=== PATIENT | female | born 1985 | race Asian ===

== ENCOUNTER 2017-07-05 15:52 | Emergency (ER) | payer OTHER ==
[~2017-07-05] VITALS: Ht 162.6 cm; Wt 61.2 kg
[2017-07-05] MEDS ORDERED: Morphine Sulfate 4mg/ml Inj IVP ONE ×2 (16:15→19:00)
[2017-07-05 17:12] VITALS: BP 123/74
[2017-07-05 17:12] LABS: BASOPHILS % (AUTO) 0.9 % (0.0-2.0); EOSINOPHILS % (AUTO) 0.3 % (0.0-3.0); LYMPHOCYTES % (AUTO) 8.1 % (20.0-45.0); MEAN CORPUSCULAR HEMOGLOBIN 31.6 PG (27.0-31.0); MEAN CORPUSCULAR HGB CONC 34.3 G/DL (32.0-36.0); MEAN CORPUSCULAR VOLUME 92 FL (80-99); MEAN PLATELET VOLUME 6.3 FL (6.5-10.1); MONOCYTES % (AUTO) 7.8 % (1.0-10.0); NEUTROPHILS % (AUTO) 82.9 % (45.0-75.0); PLATELET COUNT 271 K/UL (150-450); RED BLOOD COUNT 4.56 M/UL (4.20-5.40); RED CELL DISTRIBUTION WIDTH 11.3 % (11.6-14.8); WHITE BLOOD COUNT 17.7 K/UL (4.8-10.8)
[2017-07-05 17:14] LABS: APPEARANCE,URINE CLEAR; KETONES,URINE 4+ (NEGATIVE); LEUKOCYTE ESTERASE ,URINE 3+ (NEGATIVE); NITRITE,URINE NEGATIVE (NEGATIVE); PH,URINE 7 (4.5-8.0); PROTEIN,URINE 2+ (NEGATIVE); UROBILINOGEN,URINE 1 MG/DL (0.0-1.0)
[2017-07-05 17:24] LABS: BACTERIA,URINE MODERATE /HPF; SQUAMOUS EPITHELIAL CELL,UR FEW /LPF (NONE/OCC)
[2017-07-05 17:25] LABS: AMORPHOUS SEDIMENT,UR FEW /LPF
[2017-07-05 17:35] LABS: ALANINE AMINOTRANSFERASE 11 U/L (3-33); ALBUMIN/GLOBULIN RATIO 1.5 (1.0-2.7); ANION GAP 14 (5-15); ASPARTATE AMINO TRANSFERASE 18 U/L (5-40); CALCIUM 9.5 mg/dL (8.6-10.2); CARBON DIOXIDE 27 mEQ/L (20-30); CHLORIDE 99 mEQ/L (98-107); CREATININE 0.7 mg/dL (0.5-0.9); GLOMERULAR FILTRATION RATE > 60 mL/min (>60); HEMOLYSIS 71; POTASSIUM 3.6 mEQ/L (3.4-4.9); SODIUM 140 mEQ/L (135-145); TOTAL PROTEIN 7.5 g/dL (6.6-8.7)
[2017-07-05] MEDS ORDERED: Ketorolac 30mg Inj IV ONE (19:00)
[2017-07-05 19:12] VITALS: BP 127/71
[2017-07-05] MEDS ORDERED: SOMA350 MG PO (19:39)
[2017-07-05] MEDS ORDERED: IBUPROFEN600 MG ORAL (19:39)
[2017-07-05 19:55] VITALS: BP 127/71
--- NOTE | 2017-07-06 10:40 | Diagnostic Imaging Report ---
Indication: Neck pain Technique: MRI examination of the cervical spine was performed in a 1.5 Marisa magnet. Sequences obtained include sagittal and axial T1 and T2 fast spin echo, and sagittal STIR. No IV gadolinium was given Comparison: none Findings: There is loss of cervical lordosis. Disc height is relatively well-maintained. There is mild narrowing of the C5-6 disc with a mild circumferential disc bulge present. Bone marrow signal normal. There is no cortical impression or spinal stenosis. There is no soft tissue swelling. The cord is normal in appearance. The neural foramina and central canal. Widely patent. Impression: Mild degenerative disc disease at C5-6. Loss of cervical lordosis which may be on the basis of muscle spasm.
--- NOTE | 2017-07-06 14:21 | Emergency Room Report ---
History of Present Illness General Chief Complaint: Neck Pain Source: Patient Present Illness HPI 31-year-old female presents to ER for evaluation. Patient states she's having neck pain which started yesterday morning when she woke up. Stiffness in her neck. Pain was a 10 out of 10. Patient went to a chiropractor for manipulation and states pain did not improve. Patient states after work she went to [facility]. Had an x-ray which was negative. Pain medications. Was placed in a hard collar. She states she is here today to the pain is not improved. Pain is a 10 out of 10, sharp to the left-sided neck radiating to the left shoulder. Denies fevers or chills. Denies headache. No other aggravating or leading factors. Denies any other assocaited symptoms Allergies: Coded Allergies: No Known Allergies (Unverified , 07/05/17) Patient History Past Medical History: none Past Surgical History: none Pertinent Family History: none Social History: Denies: alcohol use, drug use, smoking Last Menstrual Period: 05/24/17 Now: No Immunizations: UTD Reviewed Nursing Documentation: PMH: Agreed, PSxH: Agreed Nursing Documentation-PMH Past Medical History: No History, Except For Review of Systems All Other Systems: negative except mentioned in HPI Physical Exam Vital Signs Date Time Temp Pulse Resp B/P Pulse Ox O2 Delivery O2 Flow Rate FiO2 07/05/17 15:55 97.7 77 16 123/74 99 Room Air Sp02 EP Interpretation: reviewed, normal General Appearance: no apparent distress, alert, GCS 15, non-toxic Head: normocephalic Eyes: bilateral eye PERRL, bilateral eye normal inspection ENT: normal ENT inspection Neck: full range of motion, no bony tend, supple/symm/no masses, limited range of motion, tender lateral Respiratory: normal inspection Cardiovascular #1: normal inspection Gastrointestinal: normal inspection Rectal: deferred Genitourinary: no CVA tenderness Musculoskeletal: back normal, gait/station normal, normal range of motion, non- tender Neurologic: alert, oriented x3, responsive, insurance coder III-XII nml as tested, motor strength/tone normal, sensory intact, speech normal Psychiatric: judgement/insight normal, memory normal, mood/affect normal, no suicidal/homicidal ideation Skin: normal inspection Lymphatic: normal inspection Medical Decision Making Diagnostic Impression: Primary Impression: Neck pain ER Course Hospital Course 31-year-old F presents to ED complaining of neck pain, stiffness Differential diagnoses include: Fracture, dislocation, sprain, contusion Clinical course Patient placed on stretcher. After initial history and physical, I ordered pain medications and MRI of Cspine Labs-noted leukocytosis, hemoglobin/hematocrit stable, electrolytes okay MRI C spine - Mild degenerative disc disease at C5-6. Loss of cervical lordosis which may be on the basis of muscle spasm. On reassessment pain is improved. given MRI findings, and no headache, and no fever, my suspicion for SAH or meningitis is low recommend removing hard-collar as it may exacerbate neck stiffness. recommend antiinflammatories and muscle relaxers Diagnosis - neck pain Stable and discharged to home with prescription for Motrin, Soma. apply heat. Followup with PMD. Return to ED if symptoms recur or worsen Labs Test 07/05/17 16:40 White Blood Count 17.7 K/UL (4.8-10.8) Red Blood Count 4.56 M/UL (4.20-5.40) Hemoglobin 14.4 G/DL (12.0-16.0) Hematocrit 42.1 % (37.0-47.0) Mean Corpuscular Volume 92 FL (80-99) Mean Corpuscular Hemoglobin 31.6 PG (27.0-31.0) Mean Corpuscular Hemoglobin Concent 34.3 G/DL (32.0-36.0) Red Cell Distribution Width 11.3 % (11.6-14.8) Platelet Count 271 K/UL (150-450) Mean Platelet Volume 6.3 FL (6.5-10.1) Neutrophils (%) (Auto) 82.9 % (45.0-75.0) Lymphocytes (%) (Auto) 8.1 % (20.0-45.0) Monocytes (%) (Auto) 7.8 % (1.0-10.0) Eosinophils (%) (Auto) 0.3 % (0.0-3.0) Basophils (%) (Auto) 0.9 % (0.0-2.0) Urine Color Yellow Urine Appearance Clear Urine pH 7 (4.5-8.0) Urine Specific [place] 1.010 (1.005-1.035) Urine Protein 2+ (NEGATIVE) Urine Glucose (UA) Negative (NEGATIVE) Urine Ketones 4+ (NEGATIVE) Urine Occult Blood Negative (NEGATIVE) Urine Nitrite Negative (NEGATIVE) Urine Bilirubin Negative (NEGATIVE) Urine Urobilinogen 1 MG/DL (0.0-1.0) Urine Leukocyte Esterase 3+ (NEGATIVE) Urine RBC 2-4 /HPF (0 - 2) Urine WBC 5-10 /HPF (0 - 2) Urine Squamous Epithelial Cells Few /LPF (NONE/OCC) Urine Amorphous Sediment Few /LPF (NONE) Urine Bacteria Moderate /HPF (NONE) Urine HCG, Qualitative Negative Sodium Level 140 mEQ/L (135-145) Potassium Level 3.6 mEQ/L (3.4-4.9) Chloride Level 99 mEQ/L (98-107) Carbon Dioxide Level 27 mEQ/L (20-30) Anion Gap 14 (5-15) Blood Urea Nitrogen 9 mg/dL (7-23) Creatinine 0.7 mg/dL (0.5-0.9) Estimat Glomerular Filtration Rate > 60 mL/min (>60) Glucose Level 97 mg/dL (74-106) Calcium Level 9.5 mg/dL (8.6-10.2) Total Bilirubin 0.8 mg/dL (0.0-1.2) Aspartate Amino Transf (AST/SGOT) 18 U/L (5-40) Alanine Aminotransferase (ALT/SGPT) 11 U/L (3-33) Alkaline Phosphatase 71 U/L (35-104) Total Protein 7.5 g/dL (6.6-8.7) Albumin 4.5 g/dL (3.5-5.2) Globulin 3.0 g/dL Albumin/Globulin Ratio 1.5 (1.0-2.7) Human Chorionic Gonadotropin, Qual CT/MRI/US Diagnostic Results CT/MRI/US Diagnostic Results : Imaging Test Ordered: MRI Cspine Impression Mild degenerative disc disease at C5-6. Loss of cervical lordosis which may be on the basis of muscle spasm. Last Vital Signs Date Time Temp Pulse Resp B/P Pulse Ox O2 Delivery O2 Flow Rate FiO2 07/05/17 19:55 97.7 75 17 127/71 99 Room Air Status: improved Disposition: HOME, SELF-CARE Condition: Stable Scripts Carisoprodol* (SOMA*) 350 Mg Tablet 350 MG PO Q6H, #30 TAB Prov: SHANTEL BOSTON M.D. 07/05/17 Ibuprofen* (MOTRIN*) 600 Mg Tablet 600 MG ORAL Q8H Y for For Pain, #30 TAB 0 Refills Prov: SHANTEL BOSTON M.D. 07/05/17 Referrals: NON PHYSICIAN (PCP) Patient Instructions: Cervical Sprain, [id number] SHANTEL BOSTON M.D. Jul 06, 2017 14:21
== END 2017-07-05 19:55 | disposition home or self-care (01) ==
LOC: EMR 16:31
DX: M54.2 Cervicalgia (principal); D72.829 Elevated white blood cell count, unspecified; M50.322 Other cervical disc degeneration at C5-C6 level
CPT/HCPCS: 36415; 72141; 80053; 81003; 81025; 84703; 85025; 87086; 96374; 96375; 99284; J1885; J2270; J3360